=== PATIENT | female | born 1985 | race Caucasian/White ===

== ENCOUNTER → 2021-04-13 | Outpatient (CLI) | payer OTHER ==
[~2021-04-13] MED LIST: ASPI325 PO
[2021-04-16 15:08] LABS: HPV 16 Negative (Negative); HPV 18 Negative (Negative); HPV OTHER HR TYPES Negative (Negative)
== END | disposition home or self-care (01) ==
LOC: LAB 17:19 → LAB SHORT 17:19
PROVIDERS: Advanced Practice Midwife
DX: Z01.419 Encounter for gynecological examination (general) (routine) without abnormal findings (principal)
CPT/HCPCS: 87624; G0123

== ENCOUNTER 2021-10-29 10:11 | Emergency (ER) | payer OTHER ==
[~2021-10-29] VITALS: Ht 162.6 cm; Wt 87.1 kg
== END 2021-10-29 11:10 | disposition home or self-care (01) ==
LOC: ER 10:11
DX: Z23 Encounter for immunization (principal); I10 Essential (primary) hypertension; Z79.82 Long term (current) use of aspirin; Z88.0 Allergy status to penicillin

== ENCOUNTER 2021-11-09 13:43 | Emergency (ER) | payer OTHER ==
[~2021-11-09] VITALS: Ht 162.6 cm; Wt 88.5 kg
== END 2021-11-09 15:41 | disposition home or self-care (01) ==
LOC: ER 13:43
DX: Z23 Encounter for immunization (principal); Z88.0 Allergy status to penicillin; Z79.82 Long term (current) use of aspirin